=== PATIENT | male | born 1975 | race Caucasian/White ===

== ENCOUNTER → 2016-10-10 | Outpatient (CLI) | payer BC ==
--- NOTE | ~2016-10-10 | CT4 ---
[facility] A Service of [facility] RADIOLOGY TEXT RESULTS PATIENT: NURA HOPSON LOCATION: [facility] : 77 UNIT #: [id number] AGE: [address]: Yimi Durham MD SEX: M ORDER DR: [id number] [place] [id number] P MR#: [id number] Acc #: [id number] NAME: NURA HOPSON : 1975 SEX: M STUDY DATE/TIME: 10/10/2016 8:02 UNIT: [facility] ROOM: STUDY DESCRIPTION: CT Abd and Pelv Wo Cont Attending Physician: Yimi Durham M.D. Referring Physician: Yimi Durham M.D. Ordering Physician: Yimi Durham M.D. Primary Care Physician: Anisa Quiros A.P.R.N. MEDICAL IMAGING REPORT This report is preliminary unless electronic signature is present. EXAM CT abdomen and pelvis without contrast. INDICATIONS Left lower quadrant abdominal pain. Microscopic hematuria for the past [address] of the abdomen and pelvis. This CT exam was performed with one or more of the following radiation dose reduction techniques: automatic exposure control, adjustment of mA and/or kV according to patient size, and iterative reconstruction. COMPARISON None. FINDINGS ABDOMEN WITHOUT CONTRAST: Liver measures 20.1 cm. Diffuse hepatic steatosis. The spleen, adrenal glands, pancreas, gallbladder have an unremarkable unenhanced appearance. Uncomplicated left-sided colonic diverticula. Appendix is normal. There is a 1-2 mm nonobstructing calculus, upper pole of the left kidney. No radiodense ureteral calculus or hydronephrosis. PELVIS WITHOUT CONTRAST: No radiodense bladder calculus. No pelvic mass or fluid. No aggressive appearing bone lesion. IMPRESSION 1. No acute findings. 2. Hepatic steatosis. Hepatomegaly. 3. Small nonobstructing calculus in the left kidney. No radiodense ureteral calculus or hydronephrosis. 4. Uncomplicated left-sided colonic diverticula. [facility] A Service of [facility] RADIOLOGY TEXT RESULTS PATIENT: NURA HOPSON LOCATION: [facility] : 77 UNIT #: [id number] AGE: [address]: Yimi Durham MD SEX: M ORDER DR: Dictated by... Sam Quintana M.D. THIS IS AN ELECTRONICALLY VERIFIED REPORT Sam Quintana M.D. at 10/10/2016 5:05 PM CESAR/porfirio TD: 10/10/2016 12:51 JOB #: [id number] MEDICAL IMAGING REPORT
== END | disposition home or self-care (01) ==
LOC: SCT 07:45
DX: R31.29 Other microscopic hematuria (principal); N20.0 Calculus of kidney; R10.32 Left lower quadrant pain; K76.0 Fatty (change of) liver, not elsewhere classified; K57.90 Diverticulosis of intestine, part unspecified, without perforation or abscess without bleeding
CPT/HCPCS: 74176